=== PATIENT | male | born 1990 | race Caucasian/White ===

== ENCOUNTER 2020-07-09 11:08 | Emergency (ER) | payer OTHER ==
[2020-07-09 11:37] LABS: BILIRUBIN,URINE NEGATIVE (NEGATIVE); GLUCOSE, URINE (UA) NEGATIVE (NEGATIVE); KETONES,URINE (UA) NEGATIVE (NEGATIVE); LEUKOCYTE ESTERASE, URINE NEGATIVE (NEGATIVE); NITRITE,URINE NEGATIVE (NEGATIVE); OCCULT BLOOD,URINE NEGATIVE (NEGATIVE); PROTEIN,URINE NEGATIVE (NEGATIVE); UROBILINOGEN,URINE 0.2 (NORMAL) E.U./dL (NORMAL)
[2020-07-09 11:43] LABS: CLARITY,URINE CLEAR (CLEAR)
[2020-07-09 11:45] LABS: BASOPHILS % (AUTO) 0.7 %; EOSINOPHILS # (AUTO) 0.1 10^3/uL (0.0-0.7); EOSINOPHILS % (AUTO) 1.1 %; HGB - HEMOGLOBIN 15.3 g/dL (14.0-18.0); LYMPHOCYTES # (AUTO) 1.3 10^3/uL (1.5-3.5); MEAN CORPUSCULAR HEMOGLOBIN 31.6 pg (27.0-31.0); MEAN CORPUSCULAR HGB CONC 33.5 g/dL (32.0-36.0); MEAN CORPUSCULAR VOLUME 94.4 fL (80.0-94.0); MONOCYTES # (AUTO) 0.5 10^3/uL (0.0-1.0); MONOCYTES % (AUTO) 8.6 %; NEUTROPHILS # (AUTO) 3.8 10^3/uL (1.5-6.6); NEUTROPHILS % (AUTO) 67.2 %; PLT - PLATELET COUNT 226 10^3/uL (130-450); RED BLOOD COUNT 4.84 10^6/uL (4.70-6.10); RED CELL DISTRIBUTION WIDTH 12.3 % (12.0-15.0); WHITE BLOOD COUNT 5.7 x10^3/uL (4.8-10.8)
[2020-07-09 11:51] LABS: ALBUMIN 5.2 g/dL (3.2-5.5); ALBUMIN/GLOBULIN RATIO 2.1 (1.0-2.2); BILIRUBIN,TOTAL 0.8 mg/dL (0.2-1.0); CALCIUM 9.4 mg/dL (8.5-10.3); CREATININE 0.7 mg/dL (0.6-1.2); TOTAL PROTEIN 7.7 g/dL (6.7-8.2)
--- NOTE | 2020-07-09 12:10 | ED Physician Documentation ---
PD HPI ABD PAIN - Stated complaint Stated Complaint: LOW STOMACH PX - Chief complaint Chief Complaint: Abd Pain - History obtained from History obtained from: Patient - Additional information Additional information: He thinks he might of pulled something in his belly at work about 5 days ago and it hurt for couple days and then mostly went away but then came back over the last couple of days. Pain is sharp and irritated and in the right lower quadrant. It worsens if he bends or twists. There is very mild nausea associated with it. Had a large bowel movement this morning which did not change the pain. No urinary complaints. Review of Systems Ten Systems: 10 systems reviewed and negative Constitutional: denies: Fever, Chills Respiratory: denies: Dyspnea, Cough GI: reports: Abdominal Pain, Nausea. denies: Vomiting, Constipation, Diarrhea PD PAST MEDICAL HISTORY - Past Medical History Past Medical History: Yes GI: Other Other Past Medical History: abdominal absecess - Past Surgical History Past Surgical History: No - Present Medications Home Medications: Ambulatory Orders Medication Instructions Recorded Confirmed No Known Home Medications 07/09/20 07/09/20 - Allergies Allergies/Adverse Reactions: Allergies Allergy/AdvReac Type Severity Reaction Status Date / Time Penicillins Allergy Unknown Verified 07/09/20 11:13 - Social History Does the pt smoke?: No Smoking Status: Never smoker Does the pt have substance abuse?: No - Immunizations Immunizations are current?: Yes - POLST Patient has POLST: No PD ED PE NORMAL - Vitals Vital signs reviewed: Yes - General General: Alert and oriented X 3, No acute distress - HEENT HEENT: PERRL, EOMI - Neck Neck: Supple, no meningeal sign, No bony TTP - Cardiac Cardiac: RRR, No murmur - Respiratory Respiratory: No respiratory distress, Clear bilaterally - Abdomen Abdomen: Normal bowel sounds, Soft, Other (Mild RLQ TTP.) - Back Back: No CVA TTP, No spinal TTP - Derm Derm: Normal color, Warm and dry - Extremities Extremities: No edema, No calf tenderness / cord - Neuro Neuro: Alert and oriented X 3, Normal speech Results - Vitals Vitals: Vital Signs - 24 hr 07/09/20 11:13 Temperature 36.8 C Heart Rate 50 L Respiratory 18 Rate Blood Pressure 124/66 O2 Saturation 100 Oxygen O2 Source Room air - Labs Labs: Laboratory Tests 07/09/20 07/09/2007/09/21 11:26 11:26 11:26 WBC 5.7 RBC 4.84 Hgb 15.3 Hct 45.7 MCV 94.4 H MCH 31.6 H MCHC 33.5 RDW 12.3 Plt Count 226 MPV 11.0 Neut # (Auto) 3.8 Lymph # (Auto) 1.3 L [place] # (Auto) 0.5 Eos # (Auto) 0.1 Baso # (Auto) 0.0 Absolute Nucleated RBC 0.00 Nucleated RBC % 0.0 Sodium 140 Potassium 3.7 Chloride 102 Carbon Dioxide 27 Anion Gap 11.0 BUN 10 Creatinine 0.7 Estimated GFR (MDRD) 132 Glucose 99 Calcium 9.4 Total Bilirubin 0.8 AST 25 ALT 25 Alkaline Phosphatase 47 Total Protein 7.7 Albumin 5.2 Globulin 2.5 Albumin/Globulin Ratio 2.1 Lipase 23 Urine Color YELLOW Urine Clarity CLEAR Urine pH 7.0 Ur Specific [place] 1.010 Urine Protein NEGATIVE Urine Glucose (UA) NEGATIVE Urine Ketones NEGATIVE Urine Occult Blood NEGATIVE Urine Nitrite NEGATIVE Urine Bilirubin NEGATIVE Urine Urobilinogen 0.2 (NORMAL) Ur Leukocyte Esterase NEGATIVE Ur Microscopic Review NOT INDICATED Urine Culture Comments NOT INDICATED PD MEDICAL DECISION MAKING - ED course ED course: 29-year-old gentleman with several days worth of abdominal pain, overall the pattern seems most consistent with a musculoskeletal etiology, but renal colic and appendicitis are also on the differential given the location. CT imaging with IV contrast demonstrated potential mild colitis and age-indeterminate T12 compression fracture. He has a strong family history for colon cancer with relatives passing early from this disease and discussed that it would be reasonable for him to follow-up with her primary care physician and consider referral for colonoscopy. Departure - Departure Disposition: 01 Home, Self Care Clinical Impression: Abdominal pain Qualifiers: Abdominal location: generalized Qualified Code(s): R10.84 - Generalized abdominal pain Condition: Stable Record reviewed to determine appropriate education?: Yes Instructions: Abdominal Pain Follow-Up: [facility] [Provider Group] [facility] [Provider Group] Comments: As discussed, CT imaging shows an age-indeterminate T12 compression fracture that could have happened like you said when you were 6 years old. Also radiologist felt you might have a mild case of colitis, eat a liquid diet for the next day and then back to normal. It is reasonable to follow-up with a primary care physician given this finding and your family history to discuss referral for nonurgent colonoscopy. Return if worsening or if new symptoms develop. Forms: Activity restrictions
[2020-07-09] MEDS ORDERED: IOVERSOL 320 100 ML VIAL IVP ONE ×2 (12:29→13:30)
--- NOTE | 2020-07-09 13:00 | CT Report ---
PROCEDURE: Abdomen/Pelvis W INDICATIONS: IV only, RLQ pain CONTRAST: IV CONTRAST: Optiray 320 ml: 100 PO CONTRAST: *NO PO CONTRAST TECHNIQUE: After the administration of IV contrast, 5 mm thick sections acquired from the diaphragms to the symp hysis. 5 mm thick coronal and sagittal reformats were acquired. For radiation dose reduction, the f ollowing was used: automated exposure control, adjustment of mA and/or kV according to patient size. COMPARISON: None. FINDINGS: Image quality: Excellent. ABDOMEN: Lung bases: Lung bases are clear. Heart size is normal. Solid organs: Liver and spleen are normal in size and enhancement. Gallbladder negative Biliary sy stem is non dilated. Pancreas enhances normally. No adrenal nodules. Kidneys demonstrate normal si ze and enhancement, without hydronephrosis. Peritoneum and bowel: There is possible sigmoid colon mural thickening, for example image 59/3 althou gh limited assessment given decompressed status. There is minimal if any adjacent inflammatory strand ing. No free fluid or air. Normal appendix. Nodes and vessels: No retroperitoneal or mesenteric adenopathy by size criteria. Aorta and inferior vena cava are normal in size. Miscellaneous: No ventral hernias. PELVIS: Genitourinary: Bladder wall thickness is normal. Miscellaneous: No inguinal hernias or adenopathy. Bones: No suspicious bony lesions. Mild T12 vertebral body anterior wedging, which is technically ag e indeterminate IMPRESSION: Normal appearance of the appendix. Questionable mural thickening involving the sigmoid colon raising possibility of low-grade infectious or inflammatory colitis. Please correlate clinically however as this is indeterminate secondary to l argely decompressed status. Elsewhere, no acute abnormality Normal appearance of the gallbladder Reviewed by: Jamari Wagner MD on 07/09/2020 12:59 PM PST Approved by: Jamari Wagner MD on 07/09/2020 12:59 PM PST Station ID: [id number]
[2020-07-09 13:11] VITALS: BP 117/60
== END 2020-07-09 13:16 | disposition home or self-care (01) ==
LOC: ED 11:08
DX: R10.84 Generalized abdominal pain (principal); R11.0 Nausea; Z80.0 Family history of malignant neoplasm of digestive organs
CPT/HCPCS: 36415; 74177; 80053; 81003; 83690; 85025; 99284; Q9967; 81001; 87086

== ENCOUNTER 2023-10-27 07:49 | Outpatient (CLI) | payer OTHER ==
--- NOTE | 2023-10-27 20:43 | XRAY Report ---
PROCEDURE: Ankle 3+V RT INDICATIONS: SPRAIN OF OTHER LIGAMENT OF RIGHT ANKLE TECHNIQUE: 3 views of the ankle were acquired. COMPARISON: None. FINDINGS: Bones: No fractures or dislocations. Ankle mortise is normally aligned. No suspicious bony lesions . Soft tissues: Mild lateral ankle soft tissue swelling is seen. Small tibiotalar joint effusion. Achi lles tendon appears normal. IMPRESSION: No acute bony abnormality. Mild lateral ankle soft tissue swelling and small joint effusion. Reviewed by: Rico Anna MD on 10/27/2023 8:42 PM PDT Approved by: Rico Anna MD on 10/27/2023 8:42 PM PDT Station ID: [id number]
== END 2023-10-27 07:50 | disposition home or self-care (01) ==
LOC: DI.N 07:49
PROVIDERS: ATTEND Physician Assistant
DX: S93.491A Sprain of other ligament of right ankle, initial encounter (principal)

== ENCOUNTER 2024-02-25 22:56 | Outpatient (CLI) | payer SELFPAY | END 2024-02-25 22:57 | disposition critical access hospital (66) | LOC: EMS 22:56 | DX: Z04.6 Encounter for general psychiatric examination, requested by authority (principal); R45.851 Suicidal ideations | CPT/HCPCS: A0425; A0429 ==

== ENCOUNTER 2024-02-25 23:13 | Emergency (ER) | payer SELFPAY ==
[2024-02-26 00:16] LABS: BASOPHILS # (AUTO) 0.1 10^3/uL (0.0-0.1); BASOPHILS % (AUTO) 0.7 %; EOSINOPHILS # (AUTO) 0.1 10^3/uL (0.0-0.7); EOSINOPHILS % (AUTO) 1.4 %; HCT - HEMATOCRIT 44.7 % (42.0-52.0); HGB - HEMOGLOBIN 15.4 g/dL (14.0-18.0); LYMPHOCYTES # (AUTO) 1.4 10^3/uL (1.5-3.5); LYMPHOCYTES % (AUTO) 15.8 %; MEAN CORPUSCULAR HEMOGLOBIN 32.2 pg (27.0-31.0); MEAN CORPUSCULAR HGB CONC 34.5 g/dL (32.0-36.0); MEAN CORPUSCULAR VOLUME 93.5 fL (80.0-94.0); MEAN PLATELET VOLUME 10.5 fL (7.4-11.4); MONOCYTES # (AUTO) 0.8 10^3/uL (0.0-1.0); MONOCYTES % (AUTO) 8.8 %; NEUTROPHILS # (AUTO) 6.6 10^3/uL (1.5-6.6); PLT - PLATELET COUNT 255 10^3/uL (130-450); RED BLOOD COUNT 4.78 10^6/uL (4.70-6.10); RED CELL DISTRIBUTION WIDTH 12.3 % (12.0-15.0)
[2024-02-26 00:19] LABS: BILIRUBIN,URINE NEGATIVE (NEGATIVE); GLUCOSE, URINE (UA) NEGATIVE (NEGATIVE); KETONES,URINE (UA) NEGATIVE (NEGATIVE); LEUKOCYTE ESTERASE, URINE NEGATIVE (NEGATIVE); NITRITE,URINE NEGATIVE (NEGATIVE); OCCULT BLOOD,URINE NEGATIVE (NEGATIVE); PROTEIN,URINE NEGATIVE (NEGATIVE); UROBILINOGEN,URINE 0.2 (NORMAL) E.U./dL (NORMAL)
[2024-02-26 00:20] LABS: CLARITY,URINE CLEAR (CLEAR)
[2024-02-26 00:21] LABS: MAGNESIUM 2.2 mg/dL (1.7-2.3)
[2024-02-26 00:28] LABS: ALBUMIN 4.7 g/dL (3.2-5.5); ALKALINE PHOSPHATASE 47 IU/L (42-121); ALT ALANINE AMINOTRANSFERASE 23 IU/L (10-60); AST ASPARTATE AMINOTRANSFERASE 24 IU/L (10-42); BILIRUBIN,TOTAL 0.5 mg/dL (0.2-1.0); BUN - BLOOD UREA NITROGEN 14 mg/dL (6-20); CALCIUM 9.2 mg/dL (8.5-10.3); CARBON DIOXIDE - CO2 23 mmol/L (21-32); CHLORIDE 109 mmol/L (101-111); CK- CREATINE KINASE 179 IU/L (30-223); CREATININE 0.6 mg/dL (0.6-1.3); ETOH - ETHANOL 150.8 mg/dL; GFR - MDRD 153 (>89); GLUCOSE 91 mg/dL (74-104); LIPASE 20 U/L (11-82); POTASSIUM 3.7 mmol/L (3.5-4.5); SODIUM 142 mmol/L (135-145)
[2024-02-26 00:30] LABS: AMPHETAMINE SCREEN,URINE NEGATIVE (NEGATIVE); BARBITURATE SCREEN,UR NEGATIVE (NEGATIVE); BENZODIAZEPINES SCREEN, URINE NEGATIVE (NEGATIVE); BUPRENORPHINE SCREEN, URINE NEGATIVE (NEGATIVE); COCAINE SCREEN URINE NEGATIVE (NEGATIVE); METHADONE SCREEN, URINE NEGATIVE (NEGATIVE); METHAMPHETAMINES SCREEN, URINE NEGATIVE (NEGATIVE); OPIATE SCREEN, URINE NEGATIVE (NEGATIVE); OXYCODONE SCREEN, URINE NEGATIVE (NEGATIVE); THC CANNABINOID SCREEN, URINE NEGATIVE (NEGATIVE); TRICYCLIC ANTIDEPRESSANT,URINE NEGATIVE (NEGATIVE)
[2024-02-26 00:37] LABS: THYROID STIMULATING HORMONE 0.56 uIU/mL (0.34-5.60)
[2024-02-26 00:50] LABS: ACETAMINOPHEN < 0.1 ug/mL; SALICYLATE < 1.5 mg/dL
--- NOTE | 2024-02-26 01:06 | ED Physician Documentation ---
PD HPI MHE - Stated complaint Stated Complaint: SI - Chief complaint Chief Complaint: MHE - History obtained from History obtained from: Patient - Additional information Additional information: BIBA. HPI from patient. Patient presents with suicidal ideation. Unclear on my HPI how long patient has been feeling this way. He endorses having specific plan (asphyxiation with helium w/ bag over his head) but tells me he does not feel he would act on these thoughts. He denies h/o either inpatient or outpatient MHE-related evaluation/treatment. He says he has never been prescribed medication for depression/anxiety. PD PAST MEDICAL HISTORY - Past Medical History Past Medical History: No GI: Other - Past Surgical History Past Surgical History: No - Present Medications Home Medications: Ambulatory Orders Medication Instructions Recorded Confirmed No Known Home Medications 07/09/20 02/25/24 - Allergies Allergies/Adverse Reactions: Allergies Allergy/AdvReac Type Severity Reaction Status Date / Time Penicillins Allergy Unknown Verified 07/09/20 11:13 - Social History Does the pt smoke?: No Smoking Status: Never smoker Does the pt have substance abuse?: No - Immunizations Immunizations are current?: Yes - POLST Patient has POLST: No PD ED PE NORMAL - Vitals Vital signs reviewed: Yes - General General: Alert and oriented X 3, No acute distress, Well developed/nourished - Cardiac Cardiac: RRR, No murmur - Respiratory Respiratory: No respiratory distress, Clear bilaterally - Neuro Neuro: Alert and oriented X 3 Eye Opening: Spontaneous Motor: Obeys Commands Verbal: Oriented GCS Score: 15 - Psych Psych: Normal mood, Normal affect Results - Vitals Vitals: Oxygen O2 Source Room air - Labs Labs: Laboratory Tests 02/25/24 02/25/24 02/25/24 23:19 23:59 23:59 WBC 9.0 RBC 4.78 Hgb 15.4 Hct 44.7 MCV 93.5 MCH 32.2 H MCHC 34.5 RDW 12.3 Plt Count 255 MPV 10.5 Neut # (Auto) 6.6 Lymph # (Auto) 1.4 L [place] # (Auto) 0.8 Eos # (Auto) 0.1 Baso # (Auto) 0.1 Absolute Nucleated RBC 0.00 Nucleated RBC % 0.0 Sodium 142 Potassium 3.7 Chloride 109 Carbon Dioxide 23 Anion Gap 10.0 BUN 14 Creatinine 0.6 Estimated GFR (MDRD) 153 Glucose 91 Calcium 9.2 Magnesium 2.2 Total Bilirubin 0.5 AST 24 ALT 23 Alkaline Phosphatase 47 Total Creatine Kinase 179 Total Protein 7.0 Albumin 4.7 Globulin 2.3 Albumin/Globulin Ratio 2.0 Lipase 20 TSH 0.56 Urine Color LIGHT YELLOW Urine Clarity CLEAR Urine pH 6.0 Ur Specific [place] <=1.005 Urine Protein NEGATIVE Urine Glucose (UA) NEGATIVE Urine Ketones NEGATIVE Urine Occult Blood NEGATIVE Urine Nitrite NEGATIVE Urine Bilirubin NEGATIVE Urine Urobilinogen 0.2 (NORMAL) Ur Leukocyte Esterase NEGATIVE Ur Microscopic Review NOT INDICATED Urine Culture Comments NOT INDICATED Salicylates < 1.5 Urine Opiates Screen NEGATIVE Ur Buprenorphine Scrn NEGATIVE Ur Oxycodone Screen NEGATIVE Urine Methadone Screen NEGATIVE Acetaminophen < 0.1 Ur Barbiturates Screen NEGATIVE Ur Tricyclics Screen NEGATIVE Ur Phencyclidine Scrn NEGATIVE Ur Amphetamine Screen NEGATIVE U Methamphetamines Scrn NEGATIVE U Benzodiazepines Scrn NEGATIVE Urine Cocaine Screen NEGATIVE U Cannabinoids Screen NEGATIVE Ur Drug Screen Comment CUTOFF CONC BELOW: Ethyl Alcohol 150.8 PD Medical Decision Making - ED course Complexity details: reviewed results, re-evaluated patient, considered differential, d/w patient ED course: Patient presents with SI although he denies intent on acting on these thoughts. He says he feels safe going home and would prefer discharge home so that he can go to work later today. He is agreeable to telepsychiatric evaluation. Telepsychiatric consult obtained; recommendation is outpatient f/u. I d/w patient and he again confirms that he feels safe and comfortable with d/c home and prefers this (over inpatient). He agrees to return immediately (or call 911) if he feels unsafe at any time. He says he has weekly (scheduled) appointments with his therapist, next appointment is tomorrow (Thursday) and he intends to keep this appointment. Departure - Departure Disposition: Home, Self Care Clinical Impression: Depression Condition: Good Instructions: ED Depression Discharge Date/Time: 02/26/24 03:48
--- NOTE | 2024-02-26 02:20 | TELEPSYCH PHYS NOTE ---
[facility] Telepsych Consult Consult Date: 02/26/24 Name of Referring Provider:: MD Robert Reason for Consult: Suicidal Ideation - Suicide Risk Sreening (ASQ Tool) In the past few weeks, have you wished you were ?: No In the past few weeks, have you felt that you or your family would be better off if you were ?: No In the past week, have you been having thoughts about killing yourself?: No Have you ever tried to kill yourself?: No - Assessment Language: [place] Cultural, Cheondoism or Spiritual Preferences: Denies. Chief Complaint: Suicidal Ideation with plan History of Present Illness: Patient is a 33 year old male that presents to the ED for suicidal ideation with plan. Patient denies having mental health history. Patient has plan to which includes asphyxiation with helium and placing a bag over his head. Per patient, "about a month and half because I am losing someone that is very dear to me and they have been shutting me out. I just finally hit a low spot." Suicide Ideation - Homicide Ideation - Self Harm: Denies SI at present but did have SI with plan earlier. Denies HI. Denies Self-harm Psychiatric History - Treatment History: Denies ever being inpatient for mental health. Currently sees a therapist. Last appointment 02/25/24. Denies taking any mental health medications now or ever. Community Resources Accessed: N/A Family Psych History/ History of suicide: Denies. "My half uncle on my fathers side by suicide. It was during Covid... he got treatment and started feeling ill." Nutritional Status: Decrease in food intake and/or appetite - Medication & Allergies Home Medications: Ambulatory Orders Medication Instructions Recorded Confirmed No Known Home Medications 07/09/20 02/25/24 Allergies/Adverse Reactions: Allergies Allergy/AdvReac Type Severity Reaction Status Date / Time Penicillins Allergy Unknown Verified 07/09/20 11:13 - Drug & Alcohol History Does patient have Drug/ETOH history or addictive behavior?: No Use: Uses substance without health or social issues: NONE (Does drink alcohol socially. UDS at arrival was 150) - Trauma Does the patient have a history of trauma, abuse, neglect or explotation?: No - Personal Information Does the patient have a history or present tendencies for violence?: None Services History: Denies. Does patient have any Legal Charges or Investigations?: Yes Legal Charges or Investigations (Notes): Arrested. Been to longterm. Denies ever been to penitentiary. Environment & Living Situation - Social, Peer-Group (Note): At home ("Myself and nephew.") Environment & Living Situation - Social, Peer-Group (Notes): Lives with nephew Marital Status - Family Circumstances: Never . No children. Stressors - Financial Concerns: "I live [place] the [place] my ex that broke up with me. She told me she didn't want to move in with me. Then told me she just wants to have fun and she starting hooking up with the one nia I hoped she wouldn't." Education: 10th grade. 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 I have a sister that is 15 years older than me. I have a brother. They when I was 8 and moved out with my father and I have been with him since. It was a good childhood, I was just a bad son. All I have now is my dad so I'm trying to make up for it now." - Mental Status Exam Appearance and Attire: Groomed. Hospital Scrubs. Attitude and Behavior: Calm and Cooperative. Avoidant eye contact. Speech: Coherent. Normal rate and normal tone. Affect and Mood: Flat. Tearful. Sad. Depressed. Association and Thought Process: Intact Association. Organized, Linear Thought Process. Thought Content: Denies SI at present but did have SI with plan earlier. Denies HI. Perception: Denies auditory and visual hallucinations. No Delusions noted. Sensorium, memory and orientation: Alert and oriented x 4 Intellectual - Cognitive functioning: Average Insight and Judgement: Fair and Fair Emotional and Behavioral Functioning: Poor Ability to Self-Care: Independent - Personal Goals Short-term Goals: "Short term goal is to wake up every morning. buttermaker continuous churn, it's the reason I hurt." - Risk/Protective Factors Risk Factors: Trigger events leading to humiliation, shame and/or despair, Social Isolation, Perceived burden on other Protective Factors / Internal: Ability to cope with stress, Frustration tolerance, Identifies reasons for living Protective Factors / External: Beloved pets, Supportive social network of family or friends, Positive therapeutic relationships - Plan Impression/Risk Assessment: Patient is a 33 year old male that presents to the ED for suicidal ideation with plan to asphyxiate with balloon filled with helium and place it over head. Patient denies having any mental health history and denies ever taking any mental health medications. Patient feels depression and suicidal ideation are from recent breakup with girlfriend of 8 years. Patient states he would never kill himself as he does have responsibilities to his nephew and taking care of his father as he is the only parent he has living. Patient does have a supportive social network as well. He is eager to get to work in this morning. During assessment, patient was able to open up to Provider and affect changed from flat and tearful to being able to smile and laugh some after some encouraging words. Although, patient has some low to moderate risk of harm to self, he does not seem to be in imminent risk of harm to self. Patient has increased social supports, responsibility to family members, engaged at work, has an emotional support animal, has established outpatient therapy with next appointment tomorrow, and currently is denying Suicidal Ideation. Treatment - Therapy Recommendations: Continue with established outpatient therapy with next appointment 02/27/24. Establish care with an Outpatient mental health medication provider. Patient will reach out to adult nephew and/or therapist if thoughts of Suicidal ideation occur Continue with coping skills such as listening to motivational and encouraging Podcasts and Spending time with Emotional Support Animal Call/text [phone] for any mental health crisis/concerns Pharmacological Recommendations: Patient will establish care with outpatient medication management provider to possibly agree to taking antidepressant to help manage situational depression. Patient will need information on Free and/or sliding scale Providers. - Time Spent & Provider Location Telepsych consultation conducted via videoconferencing: Yes List names and roles of persons who participated in consult: Patient and [facility] Provider Location: Remote in [place] Time Spent (Minutes): 50
[2024-02-26 03:50] VITALS: BP 125/70; O2SAT 99
== END 2024-02-26 03:48 | disposition home or self-care (01) ==
LOC: EDUNIT# → ED 23:13
DX: F32.A Depression, unspecified (principal)
CPT/HCPCS: 36415; 80053; 80143; 80179; 80306; 81003; 82077; 82550; 83690; 83735; 84443; 85025; 90834; 99283; Q3014; 81001; 87086